=== PATIENT | male | born 1965 | race African-American/Black ===

== ENCOUNTER 2023-05-03 15:59 | Emergency (ER) | payer MEDICAID ==
[~2023-05-03] VITALS: Ht 190.5 cm; Wt 145.1 kg
[2023-05-03 16:10] VITALS: BP 172/107; RESP 16; TEMP 98.6; O2SAT 99
[2023-05-03 16:11] VITALS: PULSE 83
== END 2023-05-03 18:55 | disposition left against medical advice (07) ==
LOC: ER 15:59
DX: I10 Essential (primary) hypertension (principal); Z53.21 Procedure and treatment not carried out due to patient leaving prior to being seen by health care provider
CPT/HCPCS: 99281